=== PATIENT | female | born 1970 | race African-American/Black ===

== ENCOUNTER 2020-02-24 07:59 | Inpatient (IN) ==
[2020-02-24 08:32] LABS: Basophils % 0.2 % (0.0-0.8); Hematocrit 36.7 VOL% (35.7-47.0); Hemoglobin 11.9 GM/DL (12.0-16.0); Immature Granulocytes % 0.3 %; Immature Granulocytes Absolute 0.02 #; Lymphocytes # 1.2 10*3/uL (1.4-4.0); Lymphocytes % 19.3 % (21.3-54.2); Mean Corpuscular HGB Conc 32.4 GM/DL (32-36); Mean Corpuscular Volume 81.4 FL (87-102); Mean Platelet Volume 10.3 FL (9.6-12.0); Monocytes % 4.3 % (1.7-12.7); Neutrophils % 75.9 % (38.7-73.9); Platelet Count 281 T/CUMM (130-400); Red Blood Count 4.51 MC/CUMM (3.8-5.5); Red Cell Distribution Width 13.1 % (9.3-17.3); White Blood Count 6.3 T/CUMM (4-12)
[2020-02-24 08:47] LABS: PT Patient Result 10.6 SECS (9.8-11.9)
[2020-02-24 09:08] LABS: Albumin 2.7 G/DL (3.4-5.0); Bilirubin,Total 0.6 MG/DL (0.2-1.0); Calcium 7.9 MG/DL (8.5-10.1); Ferritin 679.4 ng/ml (8-252); Osmolality,Calculated 271.1 MOS/KG (273-304); Total Protein 7.1 G/DL (6.4-8.3)
[2020-02-24] MEDS ORDERED: cefTRIAXone 1,000 MG in SODIUM CHLORIDE 0.9% 100 ML IV STA (09:52)
[2020-02-24] MEDS ORDERED: AZITHROMYCIN INJ 500 MG in SODIUM CHLORIDE 0.9% 250 ML IV STA (09:52)
[2020-02-24] MEDS ORDERED: SODIUM CHLORIDE 0.9% IV STA (10:18)
[2020-02-24] MEDS ORDERED: CEFTRIAXONE IV STA (10:18)
[2020-02-24] MEDS ORDERED: ALPRAZolam 0.5 MG TABLET PO ONE (10:44)
[2020-02-24] MEDS ORDERED: GLUCAGON 1 MG VIAL IM PRN ×2 (10:46→11:01)
[2020-02-24] MEDS ORDERED: DEXTROSE 50% 25 GM/50 ML VIAL IV PRN (10:46)
[2020-02-24] MEDS ORDERED: AZITHROMYCIN 250 MG TABLET PO SCH (11:00)
[2020-02-24] MEDS ORDERED: ALUMINUM/MAGNES/SIMETH MAX STR 30 ML UDCUP PO PRN (11:01)
[2020-02-24] MEDS ORDERED: CALCIUM CARBONATE CHEW 500 MG TABLET PO PRN (11:01)
[2020-02-24] MEDS ORDERED: DEXTROSE 10% 250 ML BAG IV PRN (11:01)
[2020-02-24] MEDS ORDERED: PROMETHAZINE 25 MG TABLET PO PRN (11:01)
[2020-02-24] MEDS ORDERED: ONDANSETRON 4 MG/2 ML VIAL IV PRN (11:01)
[2020-02-24] MEDS ORDERED: guaiFENesin/DM ER 600-30 MG TABLET PO PRN (11:01)
[2020-02-24] MEDS ORDERED: diphenhydrAMINE CAP 25 MG CAPSULE PO PRN (11:01)
[2020-02-24] MEDS ORDERED: BISACODYL 5 MG TABLET PO PRN (11:01)
[2020-02-24] MEDS ORDERED: ZALEPLON 5 MG CAPSULE PO PRN (11:01)
[2020-02-24] MEDS ORDERED: LACTULOSE 20 GM/30 ML UDCUP PO PRN (11:01)
[2020-02-24] MEDS ORDERED: MAGNESIUM SULF RIDER 4 GM in PREMIX 1 EACH IV PRN (11:01)
[2020-02-24] MEDS ORDERED: DOCUSATE SODIUM 100 MG CAPSULE PO PRN (11:01)
[2020-02-24] MEDS ORDERED: MAGNESIUM SULF RIDER 2 GM in PREMIX 1 EACH IV PRN (11:01)
[2020-02-24] MEDS ORDERED: SIMETHICONE CHEW 125 MG TABLET PO PRN (11:01)
[2020-02-24] MEDS ORDERED: hydrALAZINE 20 MG/1 ML VIAL IV PRN (11:01)
[2020-02-24] MEDS ORDERED: ALPRAZolam 0.5 MG TABLET PO PRN (11:04)
[2020-02-24 11:21] LABS: ABG Base Excess 2.6 MMOL/L (-2.5-2.5); ABG HCO3 26.6 MMOL/L (20-26); ABG Oxygen Saturation 94.2 % (95-100); ABG PCO2 31.3 MM HG (35-48); ABG PO2 66.1 MM HG (80-95); ABG TCO2 21.8 MMOL/L (23-27)
[2020-02-24 12:09] LABS: Amorphous Crystals,Urine Occasional /HPF (Few); Apearance,Urine CLEAR (Clear); Bacteria,Urine Occasional /HPF (Few); Bilirubin,Urine Negative (Negative); Blood, Urine Negative (Negative); Glucose,Urine (UA) Negative (Negative); Hyaline Casts,Urine 1 /LPF (0-3); Ketones,Urine 5 mg/dL (Negative); Mucus,Urine Occasional /LPF (Occasional); Nitrite,Urine Negative (Negative); Protein,Urine 100 MG/DL; RBC,Urine 1 /HPF (0-4); Squamous Epithelial Cell,Urine Occasional /HPF (0-10); Urine Color Yellow (Yellow); Urine Specific Gravity 1.018 (1.001-1.035); Urine Urobilinogen < 2.0 EU/DL (0.2-1.0); WBC,Urine 7 /HPF (0-6)
[2020-02-24] MEDS: HEPARIN 5,000 UNIT/1 ML VIAL SUBCUT SCH ×2 (13:13→18:04)
[2020-02-24] MEDS: INSULIN REGULAR 100 UNIT/ML SUBCUT SCH ×3 (13:13→20:58)
[2020-02-24] MEDS: SODIUM CHLORIDE 0.9% 1,000 ML IV SCH (13:13)
[2020-02-24] MEDS: GABAPENTIN 300 MG CAPSULE PO SCH ×2 (14:55→21:15)
[2020-02-24] MEDS: SIMVASTATIN 40 MG TABLET PO SCH (21:15)
[2020-02-24] MEDS: DOXYCYCLINE HYCLATE 100 MG CAPSULE PO SCH (21:15)
[2020-02-24] MEDS: HYDROXYCHLOROQUINE 200 MG TABLET PO SCH (21:15)
[2020-02-24] MEDS: FLUTICASONE 50 MCG NASAL SPRAY 16 GM BOTTLE BOTH NARES SCH (21:27)
[2020-02-25] MEDS: SODIUM CHLORIDE 0.9% 1,000 ML IV SCH ×2 (00:10→16:30)
[2020-02-25 04:06] LABS: ABG Base Excess 2.1 MMOL/L (-2.5-2.5); ABG HCO3 25.3 MMOL/L (20-26); ABG Oxygen Saturation 93.5 % (95-100); ABG PCO2 34.6 MM HG (35-48); ABG PH 7.482 (7.35-7.45); ABG PO2 68.5 MM HG (80-95); ABG TCO2 26.4 MMOL/L (23-27); Allen Test Positive
[2020-02-25] MEDS: HEPARIN 5,000 UNIT/1 ML VIAL SUBCUT SCH ×4 (04:28→20:28)
[2020-02-25 06:09] LABS: Basophils % 0.5 % (0.0-0.8); Eosinophils % 0.2 % (0.00-10.9); Hematocrit 34.1 VOL% (35.7-47.0); Hemoglobin 10.8 GM/DL (12.0-16.0); Immature Granulocytes % 1.2 %; Immature Granulocytes Absolute 0.05 #; Lymphocytes # 1.5 10*3/uL (1.4-4.0); Lymphocytes % 36.6 % (21.3-54.2); Mean Corpuscular HGB Conc 31.7 GM/DL (32-36); Mean Corpuscular Volume 83.2 FL (87-102); Mean Platelet Volume 9.8 FL (9.6-12.0); Monocytes % 5.9 % (1.7-12.7); Neutrophils % 55.6 % (38.7-73.9); Platelet Count 383 T/CUMM (130-400); White Blood Count 4.1 T/CUMM (4-12)
[2020-02-25 06:28] LABS: Albumin 2.2 G/DL (3.4-5.0); Calcium 8.4 MG/DL (8.5-10.1); Ferritin 683.3 ng/ml (8-252); Total Protein 6.8 G/DL (6.4-8.3)
[2020-02-25 06:32] LABS: Hypochromasia 1+; Microcytosis Slight; Ovalocytes Slight
[2020-02-25 06:33] LABS: Platelet Estimate Normal
[2020-02-25 07:26] LABS: Sedimentation Rate-Westergren 76 MM/HR (0-20)
[2020-02-25] MEDS ORDERED: PANTOPRAZOLE 40 MG TABLET PO SCH (09:00)
[2020-02-25] MEDS: INSULIN REGULAR 100 UNIT/ML SUBCUT SCH ×4 (09:31→20:28)
[2020-02-25] MEDS: sitaGLIPtin 100 MG TABLET PO SCH (09:32)
[2020-02-25] MEDS: hydroCHLOROthiazide 12.5 MG CAPSULE PO SCH (09:32)
[2020-02-25] MEDS: FLUTICASONE 50 MCG NASAL SPRAY 16 GM BOTTLE BOTH NARES SCH ×2 (09:32→20:28)
[2020-02-25] MEDS: OLMESARTAN 20 MG TABLET PO SCH (09:32)
[2020-02-25] MEDS: HYDROXYCHLOROQUINE 200 MG TABLET PO SCH ×2 (09:33→20:28)
[2020-02-25] MEDS: DOXYCYCLINE HYCLATE 100 MG CAPSULE PO SCH ×2 (09:33→23:01)
[2020-02-25] MEDS: GABAPENTIN 300 MG CAPSULE PO SCH ×3 (09:33→20:28)
[2020-02-25] MEDS: cefTRIAXone 1,000 MG in SYRINGE 1 EACH IV SCH (09:33)
[2020-02-25] MEDS: POTASSIUM CHLORIDE RIDER 10 MEQ in PREMIX 1 EACH IV PRN ×2 (09:40→11:58)
[2020-02-25 13:30] LABS: ABG Base Excess 3.3 MMOL/L (-2.5-2.5); ABG HCO3 27.3 MMOL/L (20-26); ABG Oxygen Saturation 96.1 % (95-100); ABG PCO2 35.6 MM HG (35-48); ABG PH 7.482 (7.35-7.45); ABG PO2 76.8 MM HG (80-95); ABG TCO2 23.6 MMOL/L (23-27)
[2020-02-25] MEDS: ACETAMINOPHEN 325 MG TABLET PO PRN ×2 (17:35→23:02)
[2020-02-25] MEDS: SIMVASTATIN 40 MG TABLET PO SCH (20:28)
[2020-02-25] MEDS: INSULIN GLARGINE 100 UNIT/ML SUBCUT SCH (20:28)
[2020-02-26 05:34] LABS: ABG HCO3 26.6 MMOL/L (20-26); ABG Oxygen Saturation 97.4 % (95-100); ABG PCO2 37.1 MM HG (35-48); ABG PH 7.474 (7.35-7.45); ABG PO2 97.6 MM HG (80-95); ABG TCO2 27.8 MMOL/L (23-27); Allen Test Positive; Pt O2 Delivery Device Other
[2020-02-26] MEDS: HEPARIN 5,000 UNIT/1 ML VIAL SUBCUT SCH ×3 (05:40→21:06)
[2020-02-26 06:17] LABS: Basophils % 0.2 % (0.0-0.8); Eosinophils % 0.8 % (0.00-10.9); Hematocrit 32.6 VOL% (35.7-47.0); Hemoglobin 10.4 GM/DL (12.0-16.0); Immature Granulocytes % 1.2 %; Immature Granulocytes Absolute 0.06 #; Lymphocytes # 1.5 10*3/uL (1.4-4.0); Lymphocytes % 29.8 % (21.3-54.2); Mean Corpuscular HGB Conc 31.9 GM/DL (32-36); Mean Corpuscular Volume 82.3 FL (87-102); Mean Platelet Volume 9.6 FL (9.6-12.0); Platelet Count 439 T/CUMM (130-400); Red Blood Count 3.96 MC/CUMM (3.8-5.5); Red Cell Distribution Width 12.9 % (9.3-17.3); White Blood Count 4.9 T/CUMM (4-12)
[2020-02-26 06:43] LABS: Eosinophils 1 % (0-10); Hypochromasia 1+; Lymphocytes 23 % (20-55); Microcytosis Slight; Platelet Estimate Adequate; Segmented Neutrophils 72 % (50-85); Total Cells Counted 100
[2020-02-26 06:48] LABS: Albumin 2.3 G/DL (3.4-5.0); Bilirubin,Total 0.6 MG/DL (0.2-1.0); Calcium 8.3 MG/DL (8.5-10.1); Ferritin 600.5 ng/ml (8-252); Osmolality,Calculated 275.8 MOS/KG (273-304); Total Protein 6.9 G/DL (6.4-8.3)
[2020-02-26 08:07] LABS: Sedimentation Rate-Westergren 96 MM/HR (0-20)
[2020-02-26] MEDS: POTASSIUM CHLORIDE RIDER 10 MEQ in PREMIX 1 EACH IV PRN ×2 (09:20→10:20)
[2020-02-26] MEDS: INSULIN REGULAR 100 UNIT/ML SUBCUT SCH ×4 (09:52→21:06)
[2020-02-26] MEDS: OLMESARTAN 20 MG TABLET PO SCH (09:53)
[2020-02-26] MEDS: FLUTICASONE 50 MCG NASAL SPRAY 16 GM BOTTLE BOTH NARES SCH ×2 (09:53→21:05)
[2020-02-26] MEDS: sitaGLIPtin 100 MG TABLET PO SCH (09:53)
[2020-02-26] MEDS: cefTRIAXone 1,000 MG in SYRINGE 1 EACH IV SCH (09:53)
[2020-02-26] MEDS: hydroCHLOROthiazide 12.5 MG CAPSULE PO SCH (09:53)
[2020-02-26] MEDS: GABAPENTIN 300 MG CAPSULE PO SCH ×3 (09:53→21:05)
[2020-02-26] MEDS: DOXYCYCLINE HYCLATE 100 MG CAPSULE PO SCH ×2 (09:54→21:05)
[2020-02-26] MEDS: ACETAMINOPHEN 325 MG TABLET PO PRN ×2 (11:57→17:45)
[2020-02-26] MEDS: SODIUM CHLORIDE 0.9% 1,000 ML IV SCH ×2 (13:01→17:26)
[2020-02-26] MEDS: SIMVASTATIN 40 MG TABLET PO SCH (21:05)
[2020-02-26] MEDS: INSULIN GLARGINE 100 UNIT/ML SUBCUT SCH (21:06)
[2020-02-27] MEDS: ACETAMINOPHEN 325 MG TABLET PO PRN ×2 (03:30→11:00)
[2020-02-27 04:57] LABS: Allen Test Positive; Pt O2 Delivery Device Other
[2020-02-27 05:00] LABS: ABG Base Excess 2.3 MMOL/L (-2.5-2.5); ABG HCO3 26.4 MMOL/L (20-26); ABG Oxygen Saturation 97.4 % (95-100); ABG PCO2 34.6 MM HG (35-48); ABG PH 7.477 (7.35-7.45); ABG PO2 85.2 MM HG (80-95); ABG TCO2 23.3 MMOL/L (23-27)
[2020-02-27] MEDS: HEPARIN 5,000 UNIT/1 ML VIAL SUBCUT SCH ×3 (05:30→21:25)
[2020-02-27 05:42] LABS: Basophils % 0.3 % (0.0-0.8); Eosinophils # 0.1 10*3/uL (0.0-0.87); Eosinophils % 0.9 % (0.00-10.9); Hematocrit 31.8 VOL% (35.7-47.0); Hemoglobin 10.3 GM/DL (12.0-16.0); Immature Granulocytes % 1.4 %; Immature Granulocytes Absolute 0.09 #; Lymphocytes # 1.4 10*3/uL (1.4-4.0); Lymphocytes % 21.1 % (21.3-54.2); Mean Corpuscular HGB Conc 32.4 GM/DL (32-36); Mean Corpuscular Volume 80.9 FL (87-102); Mean Platelet Volume 9.5 FL (9.6-12.0); Neutrophils % 69.3 % (38.7-73.9); Platelet Count 508 T/CUMM (130-400); Red Blood Count 3.93 MC/CUMM (3.8-5.5); Red Cell Distribution Width 12.6 % (9.3-17.3); White Blood Count 6.5 T/CUMM (4-12)
[2020-02-27 06:05] LABS: Albumin 2.2 G/DL (3.4-5.0); Bilirubin,Total 0.7 MG/DL (0.2-1.0); Calcium 8.4 MG/DL (8.5-10.1); Ferritin 511.2 ng/ml (8-252); Osmolality,Calculated 274.8 MOS/KG (273-304); Total Protein 6.8 G/DL (6.4-8.3)
[2020-02-27 06:07] LABS: Hypochromasia Slight; Platelet Estimate Increased
[2020-02-27 06:52] LABS: Sedimentation Rate-Westergren 89 MM/HR (0-20)
[2020-02-27] MEDS: hydroCHLOROthiazide 12.5 MG CAPSULE PO SCH (09:36)
[2020-02-27] MEDS: sitaGLIPtin 100 MG TABLET PO SCH (09:36)
[2020-02-27] MEDS: GABAPENTIN 300 MG CAPSULE PO SCH ×3 (09:36→21:25)
[2020-02-27] MEDS: cefTRIAXone 1,000 MG in SYRINGE 1 EACH IV SCH (09:36)
[2020-02-27] MEDS: DOXYCYCLINE HYCLATE 100 MG CAPSULE PO SCH ×2 (09:36→21:25)
[2020-02-27] MEDS: INSULIN REGULAR 100 UNIT/ML SUBCUT SCH ×4 (09:36→23:00)
[2020-02-27] MEDS: OLMESARTAN 20 MG TABLET PO SCH (09:36)
[2020-02-27] MEDS: SODIUM CHLORIDE 0.9% 1,000 ML IV SCH (09:36)
[2020-02-27] MEDS: FLUTICASONE 50 MCG NASAL SPRAY 16 GM BOTTLE BOTH NARES SCH ×2 (09:36→21:25)
[2020-02-27] MEDS: carvediloL 6.25 MG TABLET PO SCH ×2 (09:36→21:25)
[2020-02-27] MEDS: SIMVASTATIN 40 MG TABLET PO SCH (21:25)
[2020-02-27] MEDS: INSULIN GLARGINE 100 UNIT/ML SUBCUT SCH (21:25)
[2020-02-28 03:57] LABS: ABG Base Excess 4.1 MMOL/L (-2.5-2.5); ABG Oxygen Saturation 91.7 % (95-100); ABG PCO2 36.1 MM HG (35-48); ABG PO2 61.5 MM HG (80-95); ABG TCO2 24.6 MMOL/L (23-27); Allen Test Positive; Pt O2 Delivery Device Other
[2020-02-28] MEDS: HEPARIN 5,000 UNIT/1 ML VIAL SUBCUT SCH (05:45)
[2020-02-28] MEDS: ACETAMINOPHEN 325 MG TABLET PO PRN ×2 (07:57→15:48)
[2020-02-28 08:01] LABS: Basophils % 0.4 % (0.0-0.8); Eosinophils # 0.1 10*3/uL (0.0-0.87); Eosinophils % 1.5 % (0.00-10.9); Hematocrit 33.7 VOL% (35.7-47.0); Hemoglobin 10.6 GM/DL (12.0-16.0); Immature Granulocytes % 3.3 %; Immature Granulocytes Absolute 0.17 #; Lymphocytes # 1.3 10*3/uL (1.4-4.0); Lymphocytes % 25.8 % (21.3-54.2); Mean Corpuscular HGB Conc 31.5 GM/DL (32-36); Mean Corpuscular Volume 82.6 FL (87-102); Mean Platelet Volume 9.3 FL (9.6-12.0); Monocytes % 7.7 % (1.7-12.7); Neutrophils % 61.3 % (38.7-73.9); Platelet Count 618 T/CUMM (130-400); Red Blood Count 4.08 MC/CUMM (3.8-5.5); Red Cell Distribution Width 12.7 % (9.3-17.3); White Blood Count 5.2 T/CUMM (4-12)
[2020-02-28 08:26] LABS: Anisocytosis 1+; Band Neutrophils 4 % (0-10); Eosinophils 2 % (0-10); Lymphocytes 23 % (20-55); Platelet Estimate Increased; Segmented Neutrophils 58 % (50-85); Total Cells Counted 100
[2020-02-28] MEDS: carvediloL 6.25 MG TABLET PO SCH ×2 (08:43→21:16)
[2020-02-28] MEDS: DOXYCYCLINE HYCLATE 100 MG CAPSULE PO SCH ×2 (08:43→21:16)
[2020-02-28] MEDS: GABAPENTIN 300 MG CAPSULE PO SCH ×3 (08:43→21:16)
[2020-02-28] MEDS: INSULIN REGULAR 100 UNIT/ML SUBCUT SCH ×4 (08:43→21:17)
[2020-02-28] MEDS: hydroCHLOROthiazide 12.5 MG CAPSULE PO SCH (08:43)
[2020-02-28] MEDS: cefTRIAXone 1,000 MG in SYRINGE 1 EACH IV SCH (08:43)
[2020-02-28] MEDS: FLUTICASONE 50 MCG NASAL SPRAY 16 GM BOTTLE BOTH NARES SCH ×2 (08:43→21:18)
[2020-02-28] MEDS: OLMESARTAN 20 MG TABLET PO SCH (08:43)
[2020-02-28] MEDS: sitaGLIPtin 100 MG TABLET PO SCH (08:43)
[2020-02-28] MEDS: ENOXAPARIN 40 MG/0.4 ML SYRINGE SUBCUT SCH (08:43)
[2020-02-28 08:46] LABS: Albumin 2.3 G/DL (3.4-5.0); Bilirubin,Total 0.9 MG/DL (0.2-1.0); Calcium 9.2 MG/DL (8.5-10.1); Ferritin 437.1 ng/ml (8-252); Osmolality,Calculated 273.8 MOS/KG (273-304); Total Protein 6.9 G/DL (6.4-8.3)
[2020-02-28 09:10] LABS: Sedimentation Rate-Westergren 100 MM/HR (0-20)
[2020-02-28 21:01] LABS: Specimen Source SPUTUM
[2020-02-28] MEDS: SIMVASTATIN 40 MG TABLET PO SCH (21:16)
[2020-02-28] MEDS: INSULIN GLARGINE 100 UNIT/ML SUBCUT SCH (21:17)
[2020-02-29 03:55] LABS: ABG Base Excess 3.8 MMOL/L (-2.5-2.5); ABG HCO3 27.9 MMOL/L (20-26); ABG Oxygen Saturation 91.8 % (95-100); ABG PH 7.461 (7.35-7.45); ABG PO2 64.3 MM HG (80-95); ABG TCO2 29.1 MMOL/L (23-27); Allen Test Positive
[2020-02-29 05:50] LABS: Basophils % 0.7 % (0.0-0.8); Eosinophils # 0.1 10*3/uL (0.0-0.87); Hematocrit 33.8 VOL% (35.7-47.0); Hemoglobin 10.6 GM/DL (12.0-16.0); Immature Granulocytes Absolute 0.11 #; Lymphocytes # 1.5 10*3/uL (1.4-4.0); Lymphocytes % 26.3 % (21.3-54.2); Mean Corpuscular HGB Conc 31.4 GM/DL (32-36); Mean Corpuscular Volume 83.9 FL (87-102); Monocytes % 6.6 % (1.7-12.7); Neutrophils % 62.4 % (38.7-73.9); Platelet Count 655 T/CUMM (130-400); Red Blood Count 4.03 MC/CUMM (3.8-5.5); Red Cell Distribution Width 12.7 % (9.3-17.3); White Blood Count 5.6 T/CUMM (4-12)
[2020-02-29 06:11] LABS: Albumin 2.4 G/DL (3.4-5.0); Bilirubin,Total 0.5 MG/DL (0.2-1.0); Calcium 9.1 MG/DL (8.5-10.1); Total Protein 7.1 G/DL (6.4-8.3)
[2020-02-29 06:12] LABS: Ferritin 405.2 ng/ml (8-252)
[2020-02-29 07:39] LABS: Sedimentation Rate-Westergren 93 MM/HR (0-20)
[2020-02-29] MEDS: carvediloL 6.25 MG TABLET PO SCH ×2 (08:21→21:15)
[2020-02-29] MEDS: DOXYCYCLINE HYCLATE 100 MG CAPSULE PO SCH (08:21)
[2020-02-29] MEDS: GABAPENTIN 300 MG CAPSULE PO SCH ×3 (08:21→21:15)
[2020-02-29] MEDS: ENOXAPARIN 40 MG/0.4 ML SYRINGE SUBCUT SCH (08:21)
[2020-02-29] MEDS: hydroCHLOROthiazide 12.5 MG CAPSULE PO SCH (08:21)
[2020-02-29] MEDS: sitaGLIPtin 100 MG TABLET PO SCH (08:21)
[2020-02-29] MEDS: FLUTICASONE 50 MCG NASAL SPRAY 16 GM BOTTLE BOTH NARES SCH ×2 (08:21→21:15)
[2020-02-29] MEDS: OLMESARTAN 20 MG TABLET PO SCH (08:21)
[2020-02-29] MEDS: INSULIN REGULAR 100 UNIT/ML SUBCUT SCH ×4 (09:33→21:15)
[2020-02-29] MEDS ORDERED: FUROSEMIDE 40 MG/4 ML VIAL IV ONE (09:53)
[2020-02-29] MEDS: SIMVASTATIN 40 MG TABLET PO SCH (21:15)
[2020-02-29] MEDS: INSULIN GLARGINE 100 UNIT/ML SUBCUT SCH (21:15)
[2020-03-01 04:19] LABS: ABG Base Excess 4.9 MMOL/L (-2.5-2.5); ABG HCO3 28.8 MMOL/L (20-26); ABG Oxygen Saturation 98.6 % (95-100); ABG PCO2 40.5 MM HG (35-48); ABG PH 7.463 (7.35-7.45); ABG TCO2 26.2 MMOL/L (23-27)
[2020-03-01 07:30] LABS: Calcium 8.8 MG/DL (8.5-10.1); Osmolality,Calculated 276.8 MOS/KG (273-304)
[2020-03-01] MEDS: FLUTICASONE 50 MCG NASAL SPRAY 16 GM BOTTLE BOTH NARES SCH (08:49)
[2020-03-01] MEDS: sitaGLIPtin 100 MG TABLET PO SCH (08:49)
[2020-03-01] MEDS: hydroCHLOROthiazide 12.5 MG CAPSULE PO SCH (08:49)
[2020-03-01] MEDS: OLMESARTAN 20 MG TABLET PO SCH (08:49)
[2020-03-01] MEDS: GABAPENTIN 300 MG CAPSULE PO SCH ×2 (08:49→14:18)
[2020-03-01] MEDS: INSULIN REGULAR 100 UNIT/ML SUBCUT SCH ×3 (08:49→16:21)
[2020-03-01] MEDS: carvediloL 6.25 MG TABLET PO SCH (08:49)
[2020-03-01] MEDS: ENOXAPARIN 40 MG/0.4 ML SYRINGE SUBCUT SCH (08:49)
[2020-03-01 12:42] VITALS: BP 141/81
[2020-03-01] MEDS ORDERED: BISACODYL 10 MG SUPP RECTAL ONE (13:13)
[2020-03-01] MEDS ORDERED: APIXABAN 2.5 MG TABLET PO SCH (21:00)
== END 2020-03-01 17:32 | disposition home or self-care (01) | DRG 177 ==
LOC: N.ED 07:59 → SUATTDRO 10:47 → N.EDINP 10:47 → N.2W 11:10
PROVIDERS: ADMIT Internal Medicine; ATTEND Hospitalist